=== PATIENT | female | born 2000 | race Asian ===

== ENCOUNTER 2023-10-02 13:16 | Emergency (ER) | payer SELFPAY | END 2023-10-02 16:37 | disposition home or self-care (01) | LOC: MW.ED 13:16 | DX: B00.9 Herpesviral infection, unspecified (principal); Z91.041 Radiographic dye allergy status | CPT/HCPCS: 99283 ==

== ENCOUNTER 2024-05-15 09:05 | Inpatient (IN) | payer BC, OTHER ==
[2024-05-15] MEDS ORDERED: Sodium Chloride 0.9% 10 ML Syringe FLUSH PRN ×2 (09:53→21:07)
[2024-05-15] MEDS ORDERED: Calcium Gluconate 10% 1 GM/10 ML SDV IV PRN ×2 (09:53→21:07)
[2024-05-15] MEDS ORDERED: Sodium Chloride 0.9% 2.5 ML Syringe FLUSH PRN ×2 (09:53→21:07)
[2024-05-15] MEDS ORDERED: Sodium Chloride 0.9% 20 ML SDV IV PRN ×2 (09:53→21:07)
[2024-05-15] MEDS ORDERED: hydrALAZINE 20 MG/ML SDV IVPUSH PRN (09:59)
[2024-05-15] MEDS: NIFEdipine 10 MG Cap PO PRN (10:05)
[2024-05-15] MEDS: Magnesium Sulfate/Water 4 GM in Premix Bag 1 BAG IV ONE (10:59)
[2024-05-15] MEDS ORDERED: ePHEDrine 50 MG/ML SDV IVPUSH PRN ×2 (11:01)
[2024-05-15] MEDS ORDERED: Phenylephrine HCl In 0.9% NaCl 1 MG/10 ML Syringe IVPUSH PRN (11:01)
[2024-05-15] MEDS: Labetalol 100 MG/20 ML MDV IVPUSH PRN (11:04)
[2024-05-15] MEDS ORDERED: Misoprostol 50 MCG (1/2 of 100 MCG) Tab PO PRN (11:08)
[2024-05-15] MEDS ORDERED: Terbutaline 1 MG/ML SDV SUBCUT PRN (11:08)
[2024-05-15] MEDS ORDERED: Oxytocin/0.9 % Sodium Chloride 30 UNIT/500 ML BAG IV SCH (11:15)
[2024-05-15] MEDS ORDERED: dexmedeTOMIDine HCl 200 MCG/2 ML SDV EPIDUR SCH (11:15)
[2024-05-15] MEDS: Magnesium Sulfate/Water 20 GM/500 ML BAG IV SCH ×2 (11:22→21:25)
[2024-05-15] MEDS: Misoprostol 50 MCG (1/2 of 100 MCG) Tab PO PRN ×2 (11:35→16:50)
[2024-05-15] MEDS: Lactated Ringers 1,000 ML IV SCH (11:39)
[2024-05-15 11:58] LABS: HEMATOCRIT 38.1 % (37.0-47.0); HEMOGLOBIN 12.5 g/dL (12.0-16.0); MEAN CORPUSCULAR HEMOGLOBIN 27.1 pg (28.0-32.0); MEAN CORPUSCULAR HGB CONC 32.8 g/dL (32.0-36.0); MEAN CORPUSCULAR VOLUME 82.5 fL (83.0-99.0); MEAN PLATELET VOLUME 12.6 fL (9.4-12.3); PLATELET COUNT,PLT 125 K/uL (150-400); RED BLOOD CELL COUNT 4.62 M/uL (4.10-5.30); WHITE BLOOD CELL COUNT,WBC 9.26 K/uL (3.9-11.3)
[2024-05-15 12:30] LABS: A/G RATIO 0.7 (0.9-1.6); ALBUMIN 2.8 g/dL (3.4-5.0); BILIRUBIN TOTAL 0.2 mg/dL (0.2-1.0); CALCIUM 9.2 mg/dL (8.5-10.1); CARBON DIOXIDE,CO2 20.6 mmol/L (21.0-32.0); CREATININE 0.7 mg/dL (0.6-1.0); EST CRCL DRUG DOSING (CG) 88.25 mL/min; POTASSIUM,K 4.1 mmol/L (3.5-5.1); PROTEIN TOTAL,TP 6.7 g/dL (6.4-8.2); URIC ACID 6.5 mg/dL (2.6-7.2)
[2024-05-15] MEDS ORDERED: Insulin Regular in 0.9 % NACL 100 ML IV SCH (14:22)
[2024-05-15] MEDS: hydrOXYzine HCl 25 MG Tab PO PRN (23:04)
[2024-05-16] MEDS ORDERED: Terbutaline 1 MG/ML SDV SUBCUT PRN (08:55)
[2024-05-16 09:22] LABS: HEMATOCRIT 36.4 % (37.0-47.0); MEAN CORPUSCULAR HEMOGLOBIN 27.4 pg (28.0-32.0); MEAN CORPUSCULAR VOLUME 83.1 fL (83.0-99.0); MEAN PLATELET VOLUME 12.8 fL (9.4-12.3); PLATELET COUNT,PLT 145 K/uL (150-400); RED BLOOD CELL COUNT 4.38 M/uL (4.10-5.30); WHITE BLOOD CELL COUNT,WBC 8.82 K/uL (3.9-11.3)
[2024-05-16] MEDS: Lactated Ringers 1,000 ML IV SCH (09:23)
[2024-05-16] MEDS: Oxytocin/0.9 % Sodium Chloride 30 UNIT/500 ML BAG IV SCH (09:24)
[2024-05-16] MEDS: Morphine 10 MG/ML SDV IM PRN (15:10)
[2024-05-16] MEDS: Ropivacaine HCl/PF 400 MG in Premix Bag 1 BAG EPIDUR SCH (18:20)
[2024-05-16] MEDS: Ondansetron 4 MG/2 ML SDV IVPUSH PRN (22:20)
[2024-05-17] MEDS: Oxytocin/0.9 % Sodium Chloride 30 UNIT/500 ML BAG IV SCH (00:30)
[2024-05-17] MEDS ORDERED: Carboprost Tromethamine 250 MCG/1 mL Vial IM PRN (00:31)
[2024-05-17] MEDS ORDERED: Misoprostol 200 MCG Tab PO PRN (00:31)
[2024-05-17] MEDS ORDERED: Methylergonovine 0.2 MG/1 ML Amp IM PRN (00:31)
[2024-05-17] MEDS ORDERED: Tranexamic Acid IN NACL,ISO-OS 1,000 MG in Premix Bag 1 BAG IV PRN (00:31)
[2024-05-17] MEDS ORDERED: Famotidine 20 MG Tab PO PRN (00:46)
[2024-05-17] MEDS ORDERED: Simethicone 80 MG Tab.Chew PO PRN (00:46)
[2024-05-17] MEDS ORDERED: diphenhydrAMINE 50 MG Cap PO PRN (00:46)
[2024-05-17] MEDS ORDERED: Sennosides 8.6 MG Tab PO PRN (00:46)
[2024-05-17] MEDS ORDERED: Bisacodyl 10 MG Supp RECTAL PRN (00:46)
[2024-05-17] MEDS ORDERED: Aluminum Hydroxide/Magnesium Hydroxide/Simethicone XS Susp 30 ML Cup PO PRN (00:46)
[2024-05-17] MEDS: Lidocaine 1% 50 ML MDV INJECT PRN (00:50)
[2024-05-17] MEDS: Misoprostol 200 MCG Tab RECTAL PRN (00:50)
[2024-05-17] MEDS: Ibuprofen 800 MG Tab PO PRN (03:19)
[2024-05-17] MEDS: Docusate Sodium 100 MG Cap PO PRN (03:20)
[2024-05-17] MEDS: Witch Hazel Medicated Pads 40/Jar TOP PRN (03:22)
[2024-05-17] MEDS: Benzocaine/Menthol 20%-0.5% Spray 78 GM Cannister TOP PRN (03:22)
[2024-05-17 06:15] LABS: HEMATOCRIT 32.1 % (37.0-47.0); HEMOGLOBIN 10.8 g/dL (12.0-16.0); MEAN CORPUSCULAR HEMOGLOBIN 27.9 pg (28.0-32.0); MEAN CORPUSCULAR HGB CONC 33.6 g/dL (32.0-36.0); MEAN CORPUSCULAR VOLUME 82.9 fL (83.0-99.0); MEAN PLATELET VOLUME 11.8 fL (9.4-12.3); PLATELET COUNT,PLT 143 K/uL (150-400); RED BLOOD CELL COUNT 3.87 M/uL (4.10-5.30); WHITE BLOOD CELL COUNT,WBC 13.43 K/uL (3.9-11.3)
[2024-05-17 06:50] LABS: A/G RATIO 0.7 (0.9-1.6); ALBUMIN 2.4 g/dL (3.4-5.0); BILIRUBIN TOTAL 0.3 mg/dL (0.2-1.0); CALCIUM 7.4 mg/dL (8.5-10.1); CARBON DIOXIDE,CO2 19.9 mmol/L (21.0-32.0); EST CRCL DRUG DOSING (CG) 61.77 mL/min; POTASSIUM,K 4.4 mmol/L (3.5-5.1); PROTEIN TOTAL,TP 5.9 g/dL (6.4-8.2)
[2024-05-17] MEDS: Acetaminophen 500 MG Tab PO PRN (07:30)
[2024-05-17] MEDS: NIFEdipine 30 MG Tab.ER PO SCH (08:07)
[2024-05-17] MEDS: Lidocaine 1% 50 ML MDV ONE (14:09)
== END 2024-05-18 17:20 | disposition home or self-care (01) | DRG 560 ==
LOC: MW.OBCHECK 09:05 → MW.OB 09:09 → MW.OBCHECK 09:53 → OBSVTOIN 05-17 00:15 → MW.OB 05-17 09:26
PROVIDERS: ADMIT Obstetrics & Gynecology; ATTEND Obstetrics & Gynecology
PROC: 10E0XZZ Delivery of Products of Conception, External Approach (ICD-10-PCS; principal; 2024-05-17)
PROC: 10907ZC Drainage of Amniotic Fluid, Therapeutic from Products of Conception, Via Natural or Artificial Opening (ICD-10-PCS; 2024-05-17)
PROC: 3E0P7VZ Introduction of Hormone into Female Reproductive, Via Natural or Artificial Opening (ICD-10-PCS; 2024-05-17)
PROC: 3E033VJ Introduction of Other Hormone into Peripheral Vein, Percutaneous Approach (ICD-10-PCS; 2024-05-17)
PROC: 3E0R3BZ Introduction of Anesthetic Agent into Spinal Canal, Percutaneous Approach (ICD-10-PCS; 2024-05-17)
PROC: 00HU33Z Insertion of Infusion Device into Spinal Canal, Percutaneous Approach (ICD-10-PCS; 2024-05-17)
PROC: 0KQM0ZZ Repair Perineum Muscle, Open Approach (ICD-10-PCS; 2024-05-17)
DX: O24.424 Gestational diabetes mellitus in childbirth, insulin controlled (principal); Z37.0 Single live birth; O14.14 Severe pre-eclampsia complicating childbirth; O98.52 Other viral diseases complicating childbirth; O70.1 Second degree perineal laceration during delivery; Z3A.36 36 weeks gestation of pregnancy
CPT/HCPCS: 36415; 59025; 59300; 59409; 59414; 80053; 82947; 83735; 84550; 85027; 86850; 86900; 86901; A9270-GY; J1921; J2001; J2270; J2405; J2590; J2795; J3475; J7120